=== PATIENT | female | born 1955 | race African-American/Black ===

== ENCOUNTER 2017-07-04 15:56 | Emergency (ER) | payer MEDICARE, MEDICAID ==
[~2017-07-04] VITALS: Ht 172.7 cm; Wt 77.3 kg
[~2017-07-04 15:56] MED LIST: AMITRIPTYLINE H25 M1 PO; BENADRYL50 MG; COMPAZINE 110 MG/TAB PO; DILAUDID 2MG TAB2 MG PO; FOSAMAX5 MG; K-DUR 2020 MEQ PO; K-TAB20 PO; LAMICTAL 100MG100 MG PO; MAGNESIUM500 MG PO; NORFLEX 10100 MG/TAB PO; PROZAC 20MG20 MG PO; SEROQUEL50 MG PO; TREANDA25 MG PO; ZESTORETIC 12.51 TA1 PO; ZOHYDRO
[2017-07-04 15:59] VITALS: BP 134/78; TEMP 98.4
[2017-07-04 17:20] VITALS: PULSE 79
== END 2017-07-04 17:21 | disposition home or self-care (01) ==
LOC: COL.ER 15:56
DX: S20.212A Contusion of left front wall of thorax, initial encounter (principal); I10 Essential (primary) hypertension; Z98.890 Other specified postprocedural states; W01.0XXA Fall on same level from slipping, tripping and stumbling without subsequent striking against object, initial encounter; Y92.009 Unspecified place in unspecified non-institutional (private) residence as the place of occurrence of the external cause
CPT/HCPCS: J2270; J2405; J7030

== ENCOUNTER 2018-03-12 10:15 | Emergency (ER) | payer MEDICARE ==
[~2018-03-12] VITALS: Ht 172.7 cm; Wt 75.0 kg
[~2018-03-12 10:15] MED LIST changes: -ZOHYDRO; +ZOHYDRO ER15 MG PO
[2018-03-12 10:29] VITALS: TEMP 99.8
[2018-03-12 12:58] VITALS: BP 128/94; PULSE 78
[2018-03-14] MEDS ORDERED: PROBIOTIC ACID1 EAC3 PO (05:47)
[2018-03-16] MEDS ORDERED: ROBAXIN 75750 MG/TAB PO (16:23)
[2018-03-16] MEDS ORDERED: TORADOL 10MG TA10 MG PO (16:26)
[2018-03-16] MEDS ORDERED: TYLENOL 500MG500 MG PO (16:27)
== END 2018-03-12 12:59 | disposition home or self-care (01) ==
LOC: COL.ER 10:15
DX: S52.024A Nondisplaced fracture of olecranon process without intraarticular extension of right ulna, initial encounter for closed fracture (principal); I10 Essential (primary) hypertension; G89.29 Other chronic pain; Z90.710 Acquired absence of both cervix and uterus; Z88.5 Allergy status to narcotic agent; Z88.8 Allergy status to other drugs, medicaments and biological substances; Z98.890 Other specified postprocedural states; W01.0XXA Fall on same level from slipping, tripping and stumbling without subsequent striking against object, initial encounter
CPT/HCPCS: J1170; Q4050

== ENCOUNTER 2018-03-16 18:24 | Inpatient (IN) | payer MEDICARE ==
[~2018-03-16] VITALS: Ht 172.7 cm; Wt 77.9 kg
[~2018-03-16 18:24] MED LIST changes: +PROBIOTIC ACID1 EAC3 PO; +ROBAXIN 75750 MG/TAB PO; +TORADOL 10MG TA10 MG PO; +TYLENOL 500MG500 MG PO
[2018-03-16 19:56] VITALS: BP 128/61; PULSE 69; TEMP 98.4
[2018-03-16 20:13] VITALS: BP 128/61; PULSE 69; TEMP 98.4
[2018-03-17 06:00] VITALS: BP 148/75; PULSE 65; TEMP 98.6
[2018-03-17] MEDS ORDERED: FOSAMAX 70MG TA70 MG PO (16:10)
[2018-03-17 17:40] VITALS: BP 141/59; PULSE 69; TEMP 98.2
[2018-03-18 06:32] VITALS: BP 130/66; PULSE 60; TEMP 98.4
[2018-03-18 17:02] VITALS: BP 130/62; PULSE 60; TEMP 98.4
[2018-03-19 06:00] VITALS: BP 104/54; PULSE 64; TEMP 98.3
[2018-03-19 19:30] VITALS: BP 125/55; PULSE 74; TEMP 98.8
[2018-03-20 05:04] VITALS: BP 135/62; PULSE 64; TEMP 97.9
[2018-03-20 18:31] VITALS: BP 118/53; PULSE 71; TEMP 97.4
[2018-03-21 06:03] VITALS: BP 123/53; PULSE 58; TEMP 97.7
[2018-03-21 15:29] VITALS: BP 123/57; PULSE 72; TEMP 98.4
[2018-03-22 05:04] VITALS: BP 138/54; PULSE 64; TEMP 97.3; TEMP 97.9
[2018-03-22 15:37] VITALS: BP 133/55; PULSE 66; TEMP 97.2
[2018-03-23 04:49] VITALS: BP 124/64; PULSE 69; TEMP 97.5
[2018-03-23 15:20] VITALS: BP 117/53; PULSE 71; TEMP 97.9
[2018-03-24 06:27] VITALS: BP 122/55; PULSE 99; TEMP 98.4
[2018-03-24 18:13] VITALS: BP 113/47; PULSE 72; TEMP 98.6
[2018-03-25 06:43] VITALS: BP 127/56; PULSE 66; TEMP 98.6
[2018-03-25 18:06] VITALS: BP 122/72; PULSE 71; TEMP 98.1
[2018-03-26 05:54] VITALS: BP 124/60; PULSE 62; TEMP 98.3
[2018-03-26] MEDS ORDERED: NICODERM C14 MG/PATC TD (08:12)
[2018-03-26] MEDS ORDERED: ROBAXIN 50500 MG/TAB PO (08:12)
[2018-03-26] MEDS ORDERED: PHENERGAN 25 TA25 MG PO (08:12)
[2018-03-26] MEDS ORDERED: MAG-OX 400400 MG/TAB PO (08:16)
[2018-03-26] MEDS ORDERED: DULCOLAX S10 MG/SUPP RC (08:16)
[2018-03-26] MEDS ORDERED: ANTACID500 M1 PO (08:16)
[2018-03-26] MEDS ORDERED: SENOKOT S 50 MG1 TAB PO (08:17)
[2018-03-26] MEDS ORDERED: MIRALAX PA17 GM/Dose PO (08:17)
[2018-03-26] MEDS ORDERED: ZOFRAN 4MG T4 MG/TAB PO (08:17)
[2018-03-26] MEDS ORDERED: FENTANYL 12MCG TD (08:18)
[2018-03-26] MEDS ORDERED: DILAUDID 2MG TAB2 MG PO (08:18)
[2018-03-26] MEDS ORDERED: NORCO 325 MG-51 TAB PO (08:18)
[2018-03-26] MEDS ORDERED: ROXICODONE 55 MG/TAB PO (08:18)
== END 2018-03-26 10:30 | DRG 561 ==
DX: S32.591D Other specified fracture of right pubis, subsequent encounter for fracture with routine healing (principal); W01.0XXD Fall on same level from slipping, tripping and stumbling without subsequent striking against object, subsequent encounter; M25.451 Effusion, right hip; I10 Essential (primary) hypertension; F17.210 Nicotine dependence, cigarettes, uncomplicated; G89.29 Other chronic pain
CPT/HCPCS: 99222-AI; 99232-AI; 99239; J1650

== ENCOUNTER → 2018-04-01 | Outpatient (CLI) | payer MEDICARE ==
[~2018-04-01] MED LIST changes: +ANTACID500 M1 PO; +CONSTULOSE 20G/30ML PO; +DULCOLAX S10 MG/SUPP RC; +FENTANYL 12MCG TD; +FOSAMAX 70MG TA70 MG PO; +MAG-OX 400400 MG/TAB PO; +MIRALAX PA17 GM/Dose PO; +NICODERM C14 MG/PATC TD; +NORCO 325 MG-51 TAB PO; +PHENERGAN 25 TA25 MG PO; +ROBAXIN 50500 MG/TAB PO; +ROXICODONE 55 MG/TAB PO; +SENOKOT S 50 MG1 TAB PO; +ZOFRAN 4MG T4 MG/TAB PO
== END ==
LOC: COL.RAD 11:02
DX: M47.816 Spondylosis without myelopathy or radiculopathy, lumbar region (principal); S39.93XA Unspecified injury of pelvis, initial encounter

== ENCOUNTER → 2018-04-01 | Outpatient (REF) ==
[2018-04-01 19:35] LABS: CALCIUM 8.7 mg/dL (8.4-10.2); CREATININE, serum 0.75 mg/dL (0.52-1.25); MAGNESIUM 1.8 mg/dL (1.6-2.3); POTASSIUM 4.8 mmol/L (3.4-5.0)
== END ==
LOC: ZLAB.STJ 19:21
PROVIDERS: Family Medicine
DX: E61.2 Magnesium deficiency (principal); R79.89 Other specified abnormal findings of blood chemistry

== ENCOUNTER 2018-04-02 19:22 | Emergency (ER) | payer MEDICARE ==
[~2018-04-02] VITALS: Ht 172.7 cm; Wt 77.3 kg
[~2018-04-02 19:22] MED LIST changes: -CONSTULOSE 20G/30ML PO
[2018-04-02 19:23] VITALS: TEMP 97.2
[2018-04-02 20:04] LABS: BASO % 0.6 % (0.0-2.0); EOS # 0.2 (0.0-0.7); EOS % 3.9 % (0-4.0); GRAN # 3.6 (1.4-6.5); GRAN % 66.8 % (42.2-75.2); HEMATOCRIT 36.9 % (37.0-47.0); HEMOGLOBIN 12.2 g/dl (12.5-16.0); LYMPH % 18.6 % (20.0-51.0); MEAN CELL VOLUME 90 fl (80.0-100.0); MEAN CORPUSCULAR HEMOGLOBIN 30 pg (27.0-31.0); MEAN CORPUSCULAR HGB CONC 33 g/dl (33.0-37.0); MEAN PLATELET VOLUME 8.5 fl (7.4-10.4); MONO # 0.5 (0.1-0.6); MONO % 9.7 % (1.7-9.3); PLATELET COUNT 321 K/mm3 (130-400)
[2018-04-02] MEDS ORDERED: CONSTULOSE 20G/30ML PO (22:06)
[2018-04-02 22:30] VITALS: BP 143/84; PULSE 86
== END 2018-04-02 22:30 | disposition home or self-care (01) ==
LOC: COL.ER 19:22
PROVIDERS: Emergency Medicine
DX: K59.00 Constipation, unspecified (principal); I10 Essential (primary) hypertension; F17.210 Nicotine dependence, cigarettes, uncomplicated; Z90.710 Acquired absence of both cervix and uterus; Z98.890 Other specified postprocedural states

== ENCOUNTER 2018-04-06 10:13 | Outpatient (RCR) | payer OTHER ==
[~2018-04-06 10:13] MED LIST changes: +CONSTULOSE 20G/30ML PO
== END 2018-07-05 | disposition home or self-care (01) ==
LOC: WSOT
DX: S52.021D Displaced fracture of olecranon process without intraarticular extension of right ulna, subsequent encounter for closed fracture with routine healing (principal); S32.501D Unspecified fracture of right pubis, subsequent encounter for fracture with routine healing; W19.XXXD Unspecified fall, subsequent encounter
CPT/HCPCS: G8987-GO; G8988-GO

== ENCOUNTER → 2019-02-26 | Outpatient (CLI) | payer MEDICARE | LOC: COL.RAD 13:37 | DX: Z01.812 Encounter for preprocedural laboratory examination (principal); R42 Dizziness and giddiness; G43.109 Migraine with aura, not intractable, without status migrainosus | CPT/HCPCS: A9585 ==

== ENCOUNTER 2019-10-21 16:18 | Emergency (ER) | payer MEDICARE ==
[~2019-10-21] VITALS: Ht 172.7 cm; Wt 77.3 kg
[2019-10-21 16:27] VITALS: TEMP 98.3
[2019-10-21 18:47] LABS: BASO # 0.1 (0.0-0.2); BASO % 0.9 % (0.0-2.0); EOS # 0.1 (0.0-0.7); EOS % 1.8 % (0-4.0); GRAN # 3.3 (1.4-6.5); GRAN % 57.5 % (42.2-75.2); HEMATOCRIT 41.6 % (37.0-47.0); HEMOGLOBIN 13.5 g/dl (12.5-16.0); LYMPH # 1.7 (1.2-3.4); LYMPH % 30.6 % (20.0-51.0); MEAN CELL VOLUME 92 fl (80.0-100.0); MEAN CORPUSCULAR HEMOGLOBIN 30 pg (27.0-31.0); MEAN CORPUSCULAR HGB CONC 33 g/dl (33.0-37.0); MEAN PLATELET VOLUME 9.1 fl (7.4-10.4); MONO # 0.5 (0.1-0.6); MONO % 8.8 % (1.7-9.3); PLATELET COUNT 274 K/mm3 (130-400); REDCELL DISTRIBUTION WIDTH-CV 13.8 % (11.5-14.5)
[2019-10-21 19:00] LABS: ALANINE AMINOTRANSFERASE 43 U/L (9-52); ALBUMIN 4.2 gm/dL (3.5-5.0); ALKALINE PHOSPHATASE 103 U/L (50-136); ANION GAP 7 mmol/L (7-16); AST,SGOT 34 U/L (15-37); BILIRUBIN,TOTAL 0.4 mg/dL (0.0-1.0); BLOOD UREA NITROGEN 11 mg/dL (7-17); CALCIUM 8.6 mg/dL (8.4-10.2); CARBON DIOXIDE 27 mmol/L (22-30); CHLORIDE 107 mmol/L (98-107); CREATININE, serum 0.75 (0.52-1.25); GLUCOSE 79 mg/dL (74-106); POTASSIUM 3.7 mmol/L (3.4-5.0); SODIUM 141 mmol/L (137-145); TOTAL PROTEIN 7.4 gm/dL (6.4-8.2)
[2019-10-21 19:12] LABS: TROPONIN-I < 0.012 ng/mL (0.000-0.035)
[2019-10-21] MEDS ORDERED: COZAAR 25MG25 MG/TAB PO (19:19)
[2019-10-21 19:47] VITALS: BP 156/84; PULSE 60
== END 2019-10-21 19:47 | disposition home or self-care (01) ==
LOC: COL.ER 16:18
PROVIDERS: Emergency Medicine
DX: I10 Essential (primary) hypertension (principal); R51 Headache; Z90.710 Acquired absence of both cervix and uterus; Z90.89 Acquired absence of other organs; Z86.69 Personal history of other diseases of the nervous system and sense organs
CPT/HCPCS: J0360; J1200; J7030

== ENCOUNTER → 2022-01-18 | Outpatient (CLI) | payer MEDICARE ==
[~2022-01-18] MED LIST changes: +COZAAR 25MG25 MG/TAB PO; +PEPCID 20MG TAB20 MG PO
[2022-01-18 18:34] LABS: ALBUMIN 3.9 gm/dL (3.4-4.8); BILIRUBIN,TOTAL 0.3 mg/dL (0.2-1.2); CREATININE, serum 0.99 mg/dL (0.57-1.11)
[2022-01-18 18:41] LABS: BASO % 0.7 % (0.0-2.0); EOS # 0.1 K/mm3 (0.0-0.7); EOS % 1.1 % (0.0-4.0); GRAN # 3.5 K/mm3 (1.4-6.5); GRAN % 61.9 % (42.2-75.2); HEMATOCRIT 40.6 % (37.0-47.0); HEMOGLOBIN 13.5 g/dl (12.5-16.0); LYMPH # 1.5 K/mm3 (1.2-3.4); LYMPH % 27.5 % (20.0-51.0); MEAN CELL VOLUME 92 fl (80.0-100.0); MEAN CORPUSCULAR HEMOGLOBIN 31 pg (27-31); MEAN CORPUSCULAR HGB CONC 33 g/dl (33.0-37.0); MEAN PLATELET VOLUME 9.3 fl (7.4-10.4); MONO # 0.5 K/mm3 (0.1-0.6); MONO % 8.8 % (1.7-9.3); PLATELET COUNT 311 K/mm3 (130-400); RED BLOOD COUNT 4.42 M/mm3 (4.10-5.30); REDCELL DISTRIBUTION WIDTH-CV 13.5 % (11.5-14.5)
== END ==
LOC: ZCOL.LAB 18:06
PROVIDERS: Family Medicine
DX: G43.119 Migraine with aura, intractable, without status migrainosus (principal); S32.810S Multiple fractures of pelvis with stable disruption of pelvic ring, sequela; I10 Essential (primary) hypertension; M81.0 Age-related osteoporosis without current pathological fracture; R10.84 Generalized abdominal pain

== ENCOUNTER 2022-01-28 10:03 | Emergency (ER) | payer MEDICARE ==
[~2022-01-28] VITALS: Ht 172.7 cm; Wt 79.5 kg
[~2022-01-28 10:03] MED LIST changes: -PEPCID 20MG TAB20 MG PO
[2022-01-28 10:16] VITALS: TEMP 98.6
[2022-01-28 10:47] LABS: BASO # 0.1 K/mm3 (0.0-0.2); BASO % 0.9 % (0.0-2.0); EOS # 0.1 K/mm3 (0.0-0.7); EOS % 1.9 % (0.0-4.0); GRAN # 3.6 K/mm3 (1.4-6.5); GRAN % 68.9 % (42.2-75.2); HEMATOCRIT 41.1 % (37.0-47.0); HEMOGLOBIN 14.3 g/dl (12.5-16.0); LYMPH # 1.1 K/mm3 (1.2-3.4); LYMPH % 20.3 % (20.0-51.0); MEAN CELL VOLUME 89 fl (80.0-100.0); MEAN CORPUSCULAR HEMOGLOBIN 31 pg (27-31); MEAN CORPUSCULAR HGB CONC 35 g/dl (33.0-37.0); MEAN PLATELET VOLUME 8.9 fl (7.4-10.4); MONO # 0.4 K/mm3 (0.1-0.6); MONO % 7.6 % (1.7-9.3); PLATELET COUNT 316 K/mm3 (130-400); RED BLOOD COUNT 4.64 M/mm3 (4.10-5.30); REDCELL DISTRIBUTION WIDTH-CV 13.2 % (11.5-14.5)
[2022-01-28 10:56] LABS: ALANINE AMINOTRANSFERASE 25 U/L (0-55); ALBUMIN 3.9 gm/dL (3.4-4.8); ALKALINE PHOSPHATASE 78 U/L (40-150); ANION GAP 13 mmol/L (7-16); AST,SGOT 20 U/L (5-34); BILIRUBIN,TOTAL 0.5 mg/dL (0.2-1.2); BLOOD UREA NITROGEN 12 mg/dL (10-20); CALCIUM 9.4 mg/dL (8.4-10.2); CARBON DIOXIDE 20 mmol/L (23-31); CHLORIDE 104 mmol/L (98-107); CREATININE, serum 1.07 mg/dL (0.57-1.11); GLUCOSE 99 mg/dL (70-99); LIPASE 55 U/L (8-78); POTASSIUM 3.8 mmol/L (3.5-4.5); SODIUM 137 mmol/L (136-145); TOTAL PROTEIN 7.5 gm/dL (6.2-8.1)
[2022-01-28 11:03] LABS: TROPONIN-I < 0.010 ng/mL (0.00-0.033)
[2022-01-28] MEDS ORDERED: PEPCID 20MG TAB20 MG PO (12:11)
[2022-01-28 12:19] VITALS: BP 108/59; PULSE 83
== END 2022-01-28 12:20 | disposition home or self-care (01) ==
LOC: COL.ER 10:03
PROVIDERS: Emergency Medicine
DX: R10.13 Epigastric pain (principal); K83.8 Other specified diseases of biliary tract
CPT/HCPCS: Q9967

== ENCOUNTER → 2022-11-20 | Outpatient (CLI) | payer MEDICARE ==
[~2022-11-20] MED LIST changes: +PEPCID 20MG TAB20 MG PO
[2022-11-20 10:21] LABS: BASO # 0.1 K/mm3 (0.0-0.2); BASO % 0.7 % (0.0-2.0); EOS # 0.2 K/mm3 (0.0-0.7); EOS % 2.7 % (0.0-4.0); GRAN # 3.6 K/mm3 (1.4-6.5); GRAN % 52.8 % (42.2-75.2); HEMATOCRIT 38.8 % (37.0-47.0); HEMOGLOBIN 12.9 g/dl (12.5-16.0); LYMPH # 2.5 K/mm3 (1.2-3.4); MEAN CELL VOLUME 94 fl (80.0-100.0); MEAN CORPUSCULAR HEMOGLOBIN 31 pg (27-31); MEAN CORPUSCULAR HGB CONC 33 g/dl (33.0-37.0); MEAN PLATELET VOLUME 8.8 fl (7.4-10.4); MONO # 0.4 K/mm3 (0.1-0.6); MONO % 6.5 % (1.7-9.3); PLATELET COUNT 281 K/mm3 (130-400); RED BLOOD COUNT 4.11 M/mm3 (4.10-5.30); REDCELL DISTRIBUTION WIDTH-CV 12.9 % (11.5-14.5)
[2022-11-20 10:38] LABS: ALBUMIN 4.1 gm/dL (3.4-4.8); BILIRUBIN,TOTAL 0.3 mg/dL (0.2-1.2); CALCIUM 9.3 mg/dL (8.4-10.2); CHOLESTEROL RISK RATIO 3.5; CREATININE, serum 1.11 mg/dL (0.57-1.11); MAGNESIUM 1.8 mg/dL (1.6-2.6); POTASSIUM 3.9 mmol/L (3.5-4.5); TOTAL PROTEIN 7.7 gm/dL (6.2-8.1)
[2022-11-20 10:56] LABS: THYROID STIMULATING HORMONE 4.066 uIU/mL (0.350-4.940)
[2022-11-22 09:54] LABS: ANA SCREEN with REFLEX Positive (Negative)
[2022-11-24 19:13] LABS: VITAMIN B1 126 nmol/L (70-180)
== END ==
LOC: COL.LAB 09:31
DX: R53.82 Chronic fatigue, unspecified (principal); E03.9 Hypothyroidism, unspecified; G89.4 Chronic pain syndrome; E34.9 Endocrine disorder, unspecified; G72.49 Other inflammatory and immune myopathies, not elsewhere classified

== ENCOUNTER → 2022-11-20 | Outpatient (CLI) | payer MEDICARE | LOC: COL.LAB 09:00 → COL.RAD 09:00 | DX: M51.17 Intervertebral disc disorders with radiculopathy, lumbosacral region (principal); M43.16 Spondylolisthesis, lumbar region; M50.13 Cervical disc disorder with radiculopathy, cervicothoracic region; M51.15 Intervertebral disc disorders with radiculopathy, thoracolumbar region; G89.4 Chronic pain syndrome; E53.9 Vitamin B deficiency, unspecified; E03.9 Hypothyroidism, unspecified; E34.9 Endocrine disorder, unspecified; G72.49 Other inflammatory and immune myopathies, not elsewhere classified; M86.8X8 Other osteomyelitis, other site; Z87.81 Personal history of (healed) traumatic fracture; Z98.1 Arthrodesis status ==